=== PATIENT | female | born 1940 | race Caucasian/White ===

== ENCOUNTER 2018-10-24 21:47 | Emergency (ER) | payer OTHER, BC ==
[2018-10-24] MEDS ORDERED: NA CHLORIDE 0.9% 500 ML ONE (22:11)
[2018-10-25] MEDS ORDERED: levoFLOXacin 500 MG TAB ONE (00:32)
--- NOTE | 2018-10-25 00:46 | ER ---
Nurse's Notes [facility] Name: Diane White Age: 77 yrs Sex: Female : 1940 Arrival Date: 10/24/2018 Time: 21:47 Bed 8 Private MD: Diagnosis: Acute sinusitis Presentation: 10/24 21:49 Presenting complaint: Patient states: she has been having ear pain,sore throat, and dry aa1 cough x 4 days and began running fever today. Transition of care: patient was not received from another setting of care. Onset of symptoms was October 21, 2018. Risk Assessment: Do you want to hurt yourself or someone else? Patient reports no desire to harm self or others. Initial Sepsis Screen: Does the patient meet any 2 criteria? No. Patient's initial sepsis screen is negative. Does the patient have a suspected source of infection? No. Patient's initial sepsis screen is negative. Care prior to arrival: None. 21:49 Method Of Arrival: EMS: [facility] aa1 21:49 Acuity: CRISS 3 aa1 Triage Assessment: 21:49 General: Appears in no apparent distress. comfortable, Behavior is calm, cooperative, aa1 appropriate for age. Historical: - Allergies: 22:05 Biaxin; aa1 22:05 PENICILLINS; aa1 22:05 tramadol; aa1 22:05 Medrol; aa1 - Home Meds: 22:05 nisoldipine 8.5 mg oral Tb24 2 tabs in am \T\ 1 tab in pm [Active]; levothyroxine 50 mcg aa1 tab 1 tab once daily [Active]; Prevacid 15 mg Oral cpDR 2 caps once daily [Active]; doxazosin 1 mg oral tab 1 tab once daily [Active]; rosuvastatin 10 mg oral tab 1 tab once daily [Active]; Centrum Silver Women 8 mg iron-400 mcg-300 mcg oral tab daily [Active]; alprazolam 0.25 mg Oral tab 1 tab daily [Active]; - PMHx: 22:05 Anxiety; Hypothyroidism; Gastric Reflux; Hypertension; aa1 - PSHx: 22:05 Tubal ligation; Cataracts bilat; aa1 - Immunization history:: Pneumococcal vaccine is up to date, Flu vaccine is up to date. - Social history:: Smoking status: Patient/guardian denies using tobacco, never smoked. - Family history:: not pertinent. - Ebola Screening: : Patient denies exposure to infectious person Patient denies travel to an Ebola-affected area in the 21 days before illness onset. - Hospitalizations: : No recent hospitalization is reported. Screenin:50 Abuse screen: Denies threats or abuse. Denies injuries from another. Nutritional aa1 screening: No deficits noted. Tuberculosis screening: No symptoms or risk factors identified. Fall Risk None identified. Assessment: 22:27 General: Appears in no apparent distress. comfortable, Behavior is calm, cooperative, rr5 appropriate for age. Pain: Complains of pain in throat and left ear Pain currently is 5 out of 10 on a pain scale. Quality of pain is described as aching, Pain began gradually, Is intermittent. Neuro: Level of Consciousness is awake, alert, obeys commands, Oriented to person, place, time. Cardiovascular: Capillary refill < 3 seconds Patient's skin is warm and dry. Respiratory: Airway is patent Respiratory effort is even, unlabored, Respiratory pattern is regular, symmetrical. GI: No signs and/or symptoms were reported involving the gastrointestinal system. : No signs and/or symptoms were reported regarding the genitourinary system. EENT: Throat is clear with gag reflex present. Derm: No signs and/or symptoms reported regarding the dermatologic system. Musculoskeletal: Capillary refill < 3 seconds, Range of motion: intact in all extremities. 23:31 Reassessment: Patient appears in no apparent distress at this time. no complaints made. rr5 went to restroom voided freely. Patient states feeling better. Patient states symptoms have improved. 10/25 00:15 Reassessment: Patient appears in no apparent distress at this time. Patient states rr5 feeling better. Patient states symptoms have improved. 00:56 Reassessment: discharge instruction and prescription explained without questions ask. rr5 Vital Signs: 10/24 21:49 BP 158 / 68; Pulse 94; Resp 20; Temp 99.2(O); Pulse Ox 98% on R/A; Weight 58.97 kg; aa1 Height 5 ft. 2 in. (157.48 cm); Pain 0/10; 22:30 BP 141 / 75; Pulse 92; Resp 18; Pulse Ox 98% ; rr5 23:44 BP 146 / 85; Pulse 90; Resp 18; Pulse Ox 99% on R/A; rr5 12 00:45 BP 133 / 76; Pulse 89; Resp 17; Temp 99; Pulse Ox 98% ; rr5 12 21:49 Body Mass Index 23.78 (58.97 kg, 157.48 cm) aa1 ED Course: 12 21:47 Patient arrived in ED. al2 21:49 Allan Hinds MD is Attending Physician. rn 21:49 Arm band placed on left wrist. Patient placed in an exam room, on a stretcher. aa1 21:50 Patient has correct armband on for positive identification. Placed in gown. Bed in low aa1 position. Call light in reach. Side rails up X2. Pulse ox on. NIBP on. 21:59 Triage completed. aa1 22:00 Juan Mccall RN is Primary Nurse. rr5 22:05 Inserted saline lock: 20 gauge in right forearm, using aseptic technique. rr5 22:53 X-ray completed. Portable x-ray completed in exam room. Patient tolerated procedure la2 well. 23:56 XRAY Chest (1 view) In Process Unspecified. EDMS 12 00:55 No provider procedures requiring assistance completed. IV discontinued, intact, rr5 bleeding controlled, No redness/swelling at site. Pressure dressing applied. Administered Medications: 10/24 22:05 Drug: NS 0.9% 500 ml Route: IV; Rate: bolus; Site: right forearm; rr5 23:55 Follow up: IV Status: Completed infusion; IV Intake: 500ml rr5 12 00:14 Follow up: Response: No adverse reaction rr5 00:33 Drug: LevaQUIN 500 mg Route: PO; rr5 00:50 Follow up: Response: Medication administered at discharge. rr5 Intake: 12 23:55 IV: 500ml; Total: 500ml. rr5 Outcome: 12 00:45 Discharge ordered by . rn 00:55 Discharged to home ambulatory. rr5 00:55 Condition: stable 00:55 Discharge instructions given to patient, family, Instructed on discharge instructions, follow up and referral plans. medication usage, Demonstrated understanding of instructions, follow-up care, medications, Prescriptions given X 1. 00:59 Patient left the ED. rr5 Signatures: Dispatcher [employer] EDMS Chelsea Parra RN RN aa1 Allan Hinds MD MD rn Ardoin, Leslie la2 Cailin Malik Raymond, GAEL RN rr5
--- NOTE | 2018-10-25 00:47 | EDPHYS ---
Physician Documentation [facility] Name: Diane White Age: 77 yrs Sex: Female : 1940 Arrival Date: 10/24/2018 Time: 21:47 Bed 8 Private MD: ED Physician Allan Hinds HPI: 10/24 21:57 This 77 yrs old Female presents to ER via Unassigned with complaints of rn cough, congestion. 21:57 The patient or guardian reports cough, that is intermittent, described as mild. Onset: rn The symptoms/episode began/occurred 3 day(s) ago. Severity of symptoms: At their worst the symptoms were mild, in the emergency department the symptoms are unchanged. Modifying factors: The symptoms are alleviated by nothing, the symptoms are aggravated by nothing. The patient has experienced similar episodes in the past. Reports cough, fever, congestion, earache, sore throat, for 3-4 days, got weaker today, called 911 because concerned might fall and he cant get her up. Denies chest pain/sob/abd pain/vomiting/diarrhea. . Historical: - Allergies: 22:05 Biaxin; aa1 22:05 PENICILLINS; aa1 22:05 tramadol; aa1 22:05 Medrol; aa1 - Home Meds: 22:05 nisoldipine 8.5 mg oral Tb24 2 tabs in am \T\ 1 tab in pm [Active]; levothyroxine 50 mcg aa1 tab 1 tab once daily [Active]; Prevacid 15 mg Oral cpDR 2 caps once daily [Active]; doxazosin 1 mg oral tab 1 tab once daily [Active]; rosuvastatin 10 mg oral tab 1 tab once daily [Active]; Centrum Silver Women 8 mg iron-400 mcg-300 mcg oral tab daily [Active]; alprazolam 0.25 mg Oral tab 1 tab daily [Active]; - PMHx: 22:05 Anxiety; Hypothyroidism; Gastric Reflux; Hypertension; aa1 - PSHx: 22:05 Tubal ligation; Cataracts bilat; aa1 - Immunization history:: Pneumococcal vaccine is up to date, Flu vaccine is up to date. - Social history:: Smoking status: Patient/guardian denies using tobacco, never smoked. - Family history:: not pertinent. - Ebola Screening: : Patient denies exposure to infectious person Patient denies travel to an Ebola-affected area in the 21 days before illness onset. - Hospitalizations: : No recent hospitalization is reported. ROS: 21:57 Constitutional: + fever and chills Eyes: Negative for injury, pain, redness, and high school learning support teacher, ENT: + earache, + nasal congestion, + sore throat Neck: Negative for injury, pain, and swelling, Cardiovascular: Negative for chest pain, palpitations, and edema, Respiratory: + cough, neg for sob Abdomen/GI: Negative for abdominal pain, vomiting, diarrhea, and constipation, MS/Extremity: Negative for injury and deformity, Skin: Negative for injury, rash, and discoloration, Neuro: + generalized weakness Exam: 21:57 Constitutional: This is a well developed, well nourished patient who is awake, alert, rn and in no acute distress. Head/Face: Normocephalic, atraumatic. Eyes: Pupils equal round and reactive to light, extra-ocular motions intact. Lids and lashes normal. Conjunctiva and sclera are non-icteric and not injected. Cornea within normal limits. Periorbital areas with no swelling, redness, or edema. ENT: Mild pharyngeal erythema with postnasal drip, no stridor, no exudate Neck: + non-tender cervical LAD Cardiovascular: Regular rate and rhythm with a normal S1 and S2. No gallops, murmurs, or rubs. No JVD. No pulse deficits. Respiratory: Lungs have equal breath sounds bilaterally, clear to auscultation, No increased work of breathing, no retractions or nasal flaring. Abdomen/GI: soft, non-tender MS/ Extremity: Pulses equal, no cyanosis. Neurovascular intact. Full, normal range of motion. Equal circumference. Neuro: Awake and alert, GCS 15, oriented to person, place, time, and situation. Cranial nerves II-XII grossly intact. Motor strength 5/5 in all extremities. Sensory grossly intact Vital Signs: 21:49 BP 158 / 68; Pulse 94; Resp 20; Temp 99.2(O); Pulse Ox 98% on R/A; Weight 58.97 kg; aa1 Height 5 ft. 2 in. (157.48 cm); Pain 0/10; 22:30 BP 141 / 75; Pulse 92; Resp 18; Pulse Ox 98% ; rr5 23:44 BP 146 / 85; Pulse 90; Resp 18; Pulse Ox 99% on R/A; rr5 10/25 00:45 BP 133 / 76; Pulse 89; Resp 17; Temp 99; Pulse Ox 98% ; rr5 10/24 21:49 Body Mass Index 23.78 (58.97 kg, 157.48 cm) aa1 MDM: 10/24 21:49 Patient medically screened. rn 10/25 00:44 Differential Diagnosis: Bronchitis Influenza Upper Respiratory Infection Sinusitis rn Pharyngitis Viral Syndrome Pneumonia. Data reviewed: vital signs, nurses notes, lab test result(s), radiologic studies, and as a result, I will discharge patient. Counseling: I had a detailed discussion with the patient and/or guardian regarding: the historical points, exam findings, and any diagnostic results supporting the discharge/admit diagnosis, lab results, radiology results, the need for outpatient follow up, to return to the emergency department if symptoms worsen or persist or if there are any questions or concerns that arise at home. Response to treatment: the patient's symptoms have markedly improved after treatment, and as a result, I will discharge patient. Special discussion: I discussed with the patient/guardian in detail that at this point there is no indication for admission to the hospital. It is understood, however, that if the symptoms persist or worsen the patient needs to return immediately for re-evaluation. ED course: Feels better, ambulatory to bathroom.. 10/24 21:56 Order name: Flu; Complete Time: 00:17 rn 10/24 21:56 Order name: Strep rn 10/24 21:56 Order name: XRAY Chest (1 view) 10/24 23:35 Order name: Group A Streptococcus Rapid Sc; Complete Time: 23:37 EDMT 10/25 00:14 Order name: Throat Culture EDMT 10/24 21:56 Order name: IV Start; Complete Time: 22:25 rn Administered Medications: 10/24 22:05 Drug: NS 0.9% 500 ml Route: IV; Rate: bolus; Site: right forearm; rr5 23:55 Follow up: IV Status: Completed infusion; IV Intake: 500ml rr5 10/25 00:14 Follow up: Response: No adverse reaction rr5 00:33 Drug: LevaQUIN 500 mg Route: PO; rr5 00:50 Follow up: Response: Medication administered at discharge. rr5 Disposition: 10/25/18 00:45 Discharged to Home. Impression: Acute sinusitis. - Condition is Stable. - Discharge Instructions: Sinusitis, Adult. - Prescriptions for Levaquin 500 mg Oral Tablet - take 1 tablet by ORAL route once daily for 7 days; 7 tablet. - Medication Reconciliation Form, Thank You Letter, Antibiotic Education, Prescription Opioid Use form. - Follow up: Private Physician; When: As needed; Reason: Recheck today's complaints, Re-evaluation by your physician. - Problem is new. - Symptoms have improved. Signatures: Dispatcher [employer] EDMS Chelsea Parra RN RN aa1 Allan Hinds MD MD rn Roque, Raymond, RN RN rr5 Corrections: (The following items were deleted from the chart) 00:59 00:45 10/25/2018 00:45 Discharged to Home. Impression: Acute sinusitis. Condition is rr5 Stable. Forms are Medication Reconciliation Form, Thank You Letter, Antibiotic Education, Prescription Opioid Use. Follow up: Private Physician; When: As needed; Reason: Recheck today's complaints, Re-evaluation by your physician. Problem is new. Symptoms have improved. rn
[2018-10-25 01:58] VITALS: O2SAT 98
[2018-10-25 02:12] VITALS: BP 133/76; TEMP 99
--- NOTE | 2018-10-25 08:57 | RAD REPORT ---
EXAM DESCRIPTION: RAD - Chest Single View - 10/24/2018 10:57 pm CLINICAL HISTORY: Dry cough, sore throat COMPARISON: March 2017 TECHNIQUE: AP portable chest image was obtained 0853 hours . FINDINGS: Lung volumes are low compared to prior imaging. Small granuloma seen. Lung markings are no t substantially different. Heart and vasculature are normal. No measurable pleural effusion and no pn eumothorax. No acute bony abnormality seen. No acute aortic findings suspected. IMPRESSION: No acute cardiopulmonary process. No significant change from comparison.
== END 2018-10-25 00:59 | disposition home or self-care (01) ==
LOC: ER 21:47
DX: J01.90 Acute sinusitis, unspecified (principal); R05 Cough; E03.9 Hypothyroidism, unspecified; I10 Essential (primary) hypertension; K21.9 Gastro-esophageal reflux disease without esophagitis; F41.9 Anxiety disorder, unspecified; Z79.899 Other long term (current) drug therapy
CPT/HCPCS: 71045; 87070; 87081; 87804; 96360; 96361; 99284

== ENCOUNTER 2024-04-21 08:19 | Emergency (ER) | payer OTHER, BC ==
--- OUTSIDE RECORDS SUMMARY | 2024-04-21 08:22 | XMS REPORT | Continuity of Care Document ---
Author Name Unknown Address [address] [place] [id number] [facility] thconnect Address [address] [place] [address] Care Team Providers Care Office Machine Service Supervisor Name Role Phone Jose Francisco Valadez Attending Clinician Unavailable Jose Francisco Valadez Admitting Clinician Unavailable Payers Payer Name Policy Type Policy Number Effective Date Expirati on Date Source Encounters Start Date/Time End Date/Time Encounter Type Admission Type Attending Clinicians Care Facility Care Department Encounter ID Source 2022-01-08 12:00:00 2022-01-08 12:00:00 Outpatient Jose Francisco Alfonso [facility] [id number] [address] [facility]
[2024-04-21] MEDS ORDERED: LIDOCAINE 1% MPF 5 ML VIAL ONE (08:39)
--- NOTE | 2024-04-21 09:18 | RAD REPORT ---
EXAM DESCRIPTION: RAD - Knee Right 3 View - 04/21/2024 9:09 am CLINICAL HISTORY: PAIN COMPARISON: No comparisons FINDINGS: Mild osteopenia is present. No acute fracture or dislocation seen. No joint effusion.
--- NOTE | 2024-04-21 11:02 | EDPHYS ---
Physician Documentation [facility] Name: Diane White Age: 83 yrs Sex: Female : 1940 Arrival Date: 04/21/2024 Time: 08:19 Bed 4 Private MD: ED Physician Allan Hinds HPI: 04/21 09:08 This 83 yrs old Female presents to ER via Ambulatory with complaints of Fall Injury, rn Laceration To Chin. 09:08 Details of fall: The patient fell from an upright position, while standing. rn 09:08 Onset: The symptoms/episode began/occurred this morning. Associated injuries: The rn patient sustained Chin. Severity of symptoms: At their worst the symptoms were mild, in the emergency department the symptoms are unchanged. The patient has not experienced similar symptoms in the past. Patient reports walking today, tripped, fell onto knee and hit chin on the ground. Has small laceration to the chin, could not get it to stop so came in to see if she needed stitches.. Historical: - Allergies: 08:32 Medrol; iw 08:32 Biaxin; iw 08:32 PENICILLINS; iw 08:32 tramadol; iw - PMHx: 08:32 Anxiety; Gastric Reflux; Hypertension; Hypothyroidism; iw - Immunization history:: Last tetanus immunization: unknown. - Infectious Disease History:: Denies. - Social history:: Smoking status: Patient denies any tobacco usage or history of. - Family history:: not pertinent. - Hospitalizations: : No recent hospitalization is reported. ROS: 09:08 Constitutional: Negative for fever, chills, and weight loss, Cardiovascular: Negative rn for chest pain, palpitations, and edema, Respiratory: Negative for shortness of breath, cough, wheezing, and pleuritic chest pain, Abdomen/GI: Negative for abdominal pain, nausea, vomiting, diarrhea, and constipation, MS/Extremity: Positive for right knee injury and pain Skin: Positive for laceration to the chin Exam: 09:10 Constitutional: This is a well developed, well nourished patient who is awake, alert, rn and in no acute distress. Head/Face: Normocephalic, 3 cm superficial laceration to the chin, no bony tenderness underlying laceration. No significant swelling. ENT: No intraoral injury noted Neck: No midline cervical tenderness Cardiovascular: Regular rate and rhythm. No pulse deficits. Respiratory: No increased work of breathing, no retractions or nasal flaring. Abdomen/GI: Soft, non-tender MS/ Extremity: Pulses equal, no cyanosis. Mild swelling noted to right knee. No laceration to the knee. Neuro: Awake and alert, GCS 15 Vital Signs: 08:32 BP 152 / 66; Pulse 59; Resp 16; Temp 97.6; Pulse Ox 99% on R/A; Weight 60.78 kg; Height iw 5 ft. 4 in. ; 09:32 BP 149 / 64; ld1 08:32 Body Mass Index 23.00 (60.78 kg, 162.56 cm) iw Laceration: 10:59 Wound Repair of 3cm ( 1.2in ) subcutaneous laceration to chin. Distal rn neuro/vascular/tendon intact. Anesthesia: Wound infiltrated with 3 mls of 1% lidocaine. Wound prep: Extensive cleansing by nurse by me, Wound irrigation by nurse, Wound explored. Skin closed with 4 5-0 fast absorbing gut using interrupted sutures and sterile technique. Dressed with steri-strips. Patient tolerated well. MDM: 08:30 Patient medically screened. rn 10:59 Differential diagnosis: contusion, fracture, laceration, sprain, strain. Data reviewed: rn vital signs, nurses notes, radiologic studies, plain films, and as a result, I will discharge patient. Counseling: I had a detailed discussion with the patient and/or guardian regarding the historical points, exam findings, and any diagnostic results supporting the discharge/admit diagnosis, radiology results, the need for outpatient follow up, to return to the emergency department if symptoms worsen or persist or if there are any questions or concerns that arise at home. Special discussion: I discussed with the patient/guardian in detail that at this point there is no indication for admission to the hospital. It is understood, however, that if the symptoms persist or worsen the patient needs to return immediately for re-evaluation. 04/21 08:38 Order name: XRAY Knee RIGHT 3 view; Complete Time: 10:33 rn 04/21 08:38 Order name: Wound Care; Complete Time: 08:45 rn 04/21 08:38 Order name: Suture Tray at Bedside; Complete Time: 08:45 rn Administered Medications: 10:21 Drug: Lidocaine Infiltration (1 %) 1 vials 5 ml Infiltration once; to bedside Volume: 5 mb9 ml; Route: Infiltration; 11:00 Drug: Tetanus Toxoid,Adsorbed IM 0.5 ml IM once; Provide Vaccine Information Statement mb9 (VIS). {Manager Rail: [employer]; Exp: FriMay 26 2026; Lot #: [id number]; Series: 1 of 1; Patient Consent: Obtained; Date/Time: ; Source Name: Diane White; Source Relationship: Self; Address Information: [address] [place] [address]; ; Education: Provided; VIS Presented Date: ; VIS Publication: Tetanus/Diphtheria (Td) Vaccine VIS 03/04/2017 (historic)} Route: IM; Site: left deltoid; Disposition Summary: 04/21/24 11:01 Discharge Ordered Notes: Location: Home rn Problem: new rn Symptoms: have improved rn Condition: Stable rn Diagnosis - Laceration without foreign body of unspecified part of head rn - Contusion of right knee rn Followup: rn - With: Private Physician - When: As needed - Reason: Recheck today's complaints, Re-evaluation by your physician Discharge Instructions: - Discharge Summary Sheet rn - Contusion rn - Facial Laceration rn Forms: - Medication Reconciliation Form rn - Antibiotic rn neonatal - Prescription Opioid Use rn - Patient Portal Instructions rn - Leadership Thank You Letter rn Signatures: Dispatcher [employer] Lupe Heath RN Allan Amaro MD MD rn Breneman, Mary Beth RN GAEL mb9 Corrections: (The following items were deleted from the chart) 09:10 09:08 Constitutional: Negative for fever, chills, and weight loss, Cardiovascular: rn Negative for chest pain, palpitations, and edema, Respiratory: Negative for shortness of breath, cough, wheezing, and pleuritic chest pain, Abdomen/GI: Negative for abdominal pain, nausea, vomiting, diarrhea, and constipation, MS/Extremity: Negative for injury and deformity, Skin: Positive for laceration to the chin rn
--- NOTE | 2024-04-21 11:02 | ER ---
Nurse's Notes [facility] Name: Diane White Age: 83 yrs Sex: Female : 1940 Arrival Date: 04/21/2024 Time: 08:19 Bed 4 Private MD: Diagnosis: Laceration without foreign body of unspecified part of head;Contusion of right knee Presentation: 04/21 08:30 Chief complaint: Patient states: was walking up the driveway and i tripped, hit my chin iw and my right knee, happened this morning at 0630/700, chin won't stop bleeding , denies LOC, not on blood thinners. 08:30 Acuity: CRISS 3 iw 08:32 Coronavirus screen: At this time, the client does not indicate any symptoms associated iw with coronavirus-19. Ebola Screen: No symptoms or risks identified at this time. Initial Sepsis Screen: Does the patient meet any 2 criteria? No. Patient's initial sepsis screen is negative. Does the patient have a suspected source of infection? No. Patient's initial sepsis screen is negative. Risk Assessment: Do you want to hurt yourself or someone else? Patient reports no desire to harm self or others. Onset of symptoms was April 21, 2024. 08:32 Method Of Arrival: Ambulatory iw Historical: - Allergies: 08:32 Medrol; iw 08:32 Biaxin; iw 08:32 PENICILLINS; iw 08:32 tramadol; iw - PMHx: 08:32 Anxiety; Gastric Reflux; Hypertension; Hypothyroidism; iw Historical Immunization: - Administered Vaccines 11:00 Tetanus Toxoid,Adsorbed IM 0.5 ml mb9 Vulcan Crewmember: Change Lane; Exp: FriMay 26 2026; Lot #: [id number]; Series: 1 of 1; Patient Consent: Obtained; Date/Time: ; Source Name: Diane White; Source Relationship: Self; Address Information: [address] [place] [id number]; ; Education: Provided; VIS Presented Date: ; VIS Publication: Tetanus/Diphtheria (Td) Vaccine VIS 03/04/2017 (historic) 10:21 Lidocaine Infiltration (1 %) 1 vials mb9 - Immunization history:: Last tetanus immunization: unknown. - Infectious Disease History:: Denies. - Social history:: Smoking status: Patient denies any tobacco usage or history of. - Family history:: not pertinent. - Hospitalizations: : No recent hospitalization is reported. Screenin:47 [facility] ED Fall Risk Assessment (Adult) History of falling in the last 3 months, mb9 including since admission Yes- single mechanical fall (1 pt) Confusion or Disorientation No (0 pts) Intoxicated or Sedated No (0 pts) Impaired Gait No (0 pts) Mobility Assist Device Used No (0 pt) Altered Elimination No (0 pt) Score/Fall Risk Level 3 or more points = High Risk Oriented to surroundings, Maintained a safe environment, Educated pt \T\ family on fall prevention, incl call for assistance when getting out of bed. Abuse screen: Denies threats or abuse. Nutritional screening: No deficits noted. Tuberculosis screening: No symptoms or risk factors identified. Assessment: 08:45 General: Appears in no apparent distress. Behavior is calm, cooperative. Pain: mb9 Complains of pain in chin and right patella Pain does not radiate. Pain currently is 8 out of 10 on a pain scale. Quality of pain is described as throbbing, Pain began suddenly, Is continuous, Aggravated by increased activity, repositioning. Neuro: Macias Agitation-Sedation Scale (RASS): 0 - Alert and Calm Level of Consciousness is awake, alert, obeys commands, Oriented to person, place, time, situation, Appropriate for age. Neuro: Pupils are PERRLA. Cardiovascular: Patient's skin is warm and dry. Respiratory: Airway is patent Respiratory effort is even, unlabored, Respiratory pattern is regular, symmetrical. GI: No signs and/or symptoms were reported involving the gastrointestinal system. : No signs and/or symptoms were reported regarding the genitourinary system. EENT: No signs and/or symptoms were reported regarding the EENT system. Derm: Bruising that is dark purple, on right patella. Musculoskeletal: Range of motion: intact in all extremities. 10:40 Reassessment: Pyxis out of [employer]. Pharmacy contacted. mb9 Vital Signs: 08:32 BP 152 / 66; Pulse 59; Resp 16; Temp 97.6; Pulse Ox 99% on R/A; Weight 60.78 kg; Height iw 5 ft. 4 in. ; 09:32 BP 149 / 64; ld1 08:32 Body Mass Index 23.00 (60.78 kg, 162.56 cm) iw ED Course: 08:24 Patient arrived in ED. mg5 08:30 Allan Hinds MD is Attending Physician. rn 08:31 Triage completed. iw 08:33 Arm band placed on. iw 08:35 Shruthi Whitley, GAEL is Primary Nurse. mb9 08:47 Placed in gown. Bed in low position. Call light in reach. Side rails up X 1. Provided mb9 Education on: press call light if needing anything. Client placed on continuous cardiac and pulse oximetry monitoring. NIBP monitoring applied. Door closed. Noise minimized. Warm blanket given. Pillow given. 09:11 XRAY Knee RIGHT 3 view In Process Unspecified. EDMS 10:24 Assist provider with laceration repair on chin that was between 2.6 to 7.5 cm using mb9 sutures. Set up tray. Performed by Allan Hinds MD Dressed with band aid, Patient tolerated well. 10:25 Patient did not have IV access during this emergency room visit. mb9 Administered Medications: 10:21 Drug: Lidocaine Infiltration (1 %) 1 vials 5 ml Infiltration once; to bedside Volume: 5 mb9 ml; Route: Infiltration; 11:00 Drug: Tetanus Toxoid,Adsorbed IM 0.5 ml IM once; Provide Vaccine Information Statement mb9 (VIS). {Vulcan Crewmember: Change Lane; Exp: FriMay 26 2026; Lot #: [id number]; Series: 1 of 1; Patient Consent: Obtained; Date/Time: ; Source Name: Diane White; Source Relationship: Self; Address Information: [address] [place] [address]; ; Education: Provided; VIS Presented Date: ; VIS Publication: Tetanus/Diphtheria (Td) Vaccine VIS 03/04/2017 (historic)} Route: IM; Site: left deltoid; Medication: 08:48 VIS not applicable for this client. mb9 Outcome: 11:01 Discharge ordered by . rn 11:10 Discharged to home ambulatory, maria e 11:10 Condition: stable 11:10 Discharge instructions given to patient, Instructed on discharge instructions, follow up and referral plans. Demonstrated understanding of instructions, follow-up care, 11:10 Patient left the ED. mb9 Signatures: Dispatcher [employer] Lupe Heath, Allan Amaro RN, MD MD rn Sims, Lauren, RN RN ld1 Gutierrez, Shruthi Martins RN RN [email or web address] Smitha Cannon mg5 Corrections: (The following items were deleted from the chart) 08:32 08:30 Chief complaint: Patient states: was walking up the driveway and i tripped, hit iw my chin and my right knee, happened this morning at 0630/700, chin won't stop bleeding iw 10:25 08:48 No provider procedures requiring assistance completed. mb9 mb9
[2024-04-21] MEDS ORDERED: TDAP (DIPHTH,PERTUSS(ACELL),TET VAC) 0.5 ML VIAL IMVAC ONE (11:04)
[2024-04-21 11:18] VITALS: BP 149/64; TEMP 97.6; O2SAT 99
== END 2024-04-21 11:10 | disposition home or self-care (01) ==
LOC: ER 08:19
PROC: 0HQ1XZZ Repair Face Skin, External Approach (ICD-10-PCS; principal; 2024-04-21)
DX: S01.81XA Laceration without foreign body of other part of head, initial encounter (principal); S80.01XA Contusion of right knee, initial encounter; W01.0XXA Fall on same level from slipping, tripping and stumbling without subsequent striking against object, initial encounter; Z23 Encounter for immunization
CPT/HCPCS: 73562; 90471; 99284; 12013; J2001

== ENCOUNTER 2025-02-16 22:48 | Emergency (ER) | payer OTHER, BC ==
--- OUTSIDE RECORDS SUMMARY | 2025-02-16 22:50 | XMS REPORT | Continuity of Care Document ---
Author Name Unknown Address [address] [facility] [address] [facility] [address] [place] [address] [facility] Address [address] [place] [address] Care Team Providers Care Rock Crushing Machine Operator Name Role Phone Jose Francisco Valadez Attending Clinician Unavailable Jose Francisco Valadez Admitting Clinician Unavailable Payers Payer Name Policy Type Policy Number Effective Date Expirati on Date Source Encounters Start Date/Time End Date/Time Encounter Type Admission Type Attending Clinicians Care Facility Care Department Encounter ID Source 2022-01-08 12:00:00 2022-01-08 12:00:00 Outpatient Jose Francisco Alfonso [facility] JUAN [id number] [address] [facility]
[2025-02-16] MEDS ORDERED: ACETAMINOPHEN 500 MG TAB ONE (23:49)
[2025-02-17 00:02] LABS: Influenza A Ag Negative; Influenza B Ag Negative; SARS-CoV-2 Antigen Rapid Res Negative (Negative)
--- NOTE | 2025-02-17 02:08 | ER ---
Nurse's Notes [facility] Name: Diane White Age: 84 yrs Sex: Female : 1940 Arrival Date: 02/16/2025 Time: 22:48 Bed 20 Private MD: Diagnosis: Acute upper respiratory infection, unspecified Presentation: 02/16 23:25 Chief complaint: Patient states: PT HAS BEEN RUNNING FEVER/HEADACHE SINCE br2 FRIDAY....DENIES N/V/D. Coronavirus screen: Client denies travel out of the [place] in the last 14 days. Ebola Screen: Patient denies exposure to infectious person. Initial Sepsis Screen: Does the patient meet any 2 criteria? Temp <36.0*C (96.8*F)) or > 38.3*C (100.9*F). Does the patient have a suspected source of infection? No. Patient's initial sepsis screen is negative. Risk Assessment: Do you want to hurt yourself or someone else? Patient reports no desire to harm self or others. Onset of symptoms was February 13, 2025. 23:25 Method Of Arrival: EMS: [facility] br2 23:25 Acuity: CRISS 3 br2 Triage Assessment: 23:36 General: Appears in no apparent distress. comfortable, Behavior is calm, cooperative. br2 Pain: Complains of pain in top of head and forehead. EENT: No signs and/or symptoms were reported regarding the EENT system. Neuro: Macias Agitation-Sedation Scale (RASS): 0 - Alert and Calm Level of Consciousness is awake, alert, obeys commands, Oriented to person, place, time, situation. Cardiovascular: Denies chest pain. Respiratory: Denies cough, shortness of breath. GI: No signs and/or symptoms were reported involving the gastrointestinal system. : No signs and/or symptoms were reported regarding the genitourinary system. Historical: - Allergies: 23:36 Biaxin; br2 23:36 Medrol; br2 23:36 PENICILLINS; br2 23:36 tramadol; br2 - PMHx: 23:36 Hypothyroidism; Anxiety; Gastric Reflux; Hypertension; br2 - Immunization history:: Client reports receiving the 2nd dose of the Covid vaccine, Flu vaccine is up to date. - Social history:: Smoking status: Patient denies any tobacco usage or history of. - Infectious Disease History:: Denies. Screenin:25 [facility] ED Fall Risk Assessment (Adult) History of falling in the last 3 months, br2 including since admission No falls in past 3 months (0 pts) Confusion or Disorientation No (0 pts) Intoxicated or Sedated No (0 pts) Impaired Gait No (0 pts) Mobility Assist Device Used No (0 pt) Altered Elimination No (0 pt) Score/Fall Risk Level 0 - 2 = Low Risk Oriented to surroundings. Abuse screen: Denies threats or abuse. Denies injuries from another. Nutritional screening: No deficits noted. Tuberculosis screening: No symptoms or risk factors identified. Assessment: 23:25 Reassessment: SEE TRIAGE ASSESSMENT. br2 02/17 01:03 Reassessment: Patient and/or family updated on plan of care and expected duration. Pain br2 level reassessed. Patient states symptoms have improved. 02:00 Reassessment: Patient and/or family updated on plan of care and expected duration. Pain br2 level reassessed. Patient is alert, oriented x 3, equal unlabored respirations, skin warm/dry/pink. Patient states feeling better. Patient states symptoms have improved. Vital Signs: 02/16 23:25 BP 149 / 61; Pulse 91; Resp 18; Temp 102.2(O); Pulse Ox 93% on R/A; Weight 58.97 kg; br2 Height 5 ft. 2 in. ; Pain 8/10; 02/17 00:59 BP 122 / 53; Pulse 77; Resp 18; Temp 100.1(O); Pulse Ox 90% on R/A; br2 01:59 BP 116 / 49; Pulse 69; Resp 18; Pulse Ox 93% ; br2 02/16 23:25 Body Mass Index 23.78 (58.97 kg, 157.48 cm) br2 02/16 23:25 Pain Scale: Adult br2 ED Course: 02/16 22:50 Patient arrived in ED. jj6 22:55 Isabelle Pascual MD is Attending Physician. sw6 23:25 Patient has correct armband on for positive identification. Bed in low position. Call br2 light in reach. Side rails up X 1. Provided Education on: PLAN OF CARE. 23:34 Juana Cano, RN is Primary Nurse. br2 23:35 COVID-19 Ag + Flu A+B Ag Sent. vc1 23:36 Triage completed. br2 23:39 CXR XRAY In Process Unspecified. EDMS 02/17 02:16 No provider procedures requiring assistance completed. Patient did not have IV access br2 during this emergency room visit. Administered Medications: 02/16 23:58 Drug: Acetaminophen PO 1000 mg PO once Route: PO; br2 02/17 02:00 Follow up: Response: No adverse reaction br2 Outcome: 02:07 Discharge ordered by . sw6 02:16 Discharged to home ambulatory, br2 02:16 Discharged to home via wheelchair, 02:16 Condition: improved 02:16 Discharge instructions given to patient, Instructed on discharge instructions, follow up and referral plans. Demonstrated understanding of instructions, follow-up care, 02:41 Patient left the ED. br2 Signatures: Dispatcher [employer] EDNV Arlet Mahoney jj6 Jordana Apple RN RN vc1 Isabelle Pascual MD MD sw6 Juana Cano, GAEL RN br2
--- NOTE | 2025-02-17 02:08 | EDPHYS ---
Physician Documentation [facility] Name: Diane White Age: 84 yrs Sex: Female : 1940 Arrival Date: 02/16/2025 Time: 22:48 Bed 20 Private MD: ED Physician Isabelle Pascual HPI: 02/16 23:27 This 84 yrs old Female presents to ER via Unassigned with complaints of Fever.sw6 23:27 The patient reports fever, not measured (subjective). Onset: The symptoms/episode sw6 began/occurred Friday. Today is Friday. Modifying factors: there are no obvious modifying factors, Denies contact with similarly ill indivduals. Denies recent travel. Associated signs and symptoms: Pertinent positives: cough, that is dry, headache, Pertinent negatives: abdominal pain, altered mental status, hemoptysis, nausea, runny nose, sinus congestion, sinus drainage, shortness of breath, sore throat. Severity of symptoms: At their worst the symptoms were mild in the emergency department the symptoms are unchanged. The patient has not recently seen a physician. The patient presents from home and EMS for evaluation for headache as well as a fever that started on Friday. Today is Friday evening. No sick contacts. She did have some Tylenol earlier this afternoon but nothing recently. Slight cough. No ear pain. No sore throat. No neck pain or stiffness. No dysuria or hematuria. No weakness to her arms or legs. She does have a history of high blood pressure and admits to compliance with her medication. No history of diabetes. She does not smoke. She did receive both a flu as well as a COVID-vaccine this season. Here for evaluation.. Historical: - Allergies: 23:36 Biaxin; br2 23:36 Medrol; br2 23:36 PENICILLINS; br2 23:36 tramadol; br2 - PMHx: 23:36 Hypothyroidism; Anxiety; Gastric Reflux; Hypertension; br2 - Immunization history:: Client reports receiving the 2nd dose of the Covid vaccine, Flu vaccine is up to date. - Social history:: Smoking status: Patient denies any tobacco usage or history of. - Infectious Disease History:: Denies. ROS: 23:27 Constitutional: Positive for chills, fever, sw6 23:27 Respiratory: Positive for cough, Negative for shortness of breath, 23:27 Neuro: Positive for headache, 23: All other systems are negative, 02/17 02:08 Constitutional: Negative for fever, chills, and weight loss, Exam: 02/16 23:27 Constitutional: This is a well developed, well nourished patient who is awake, alert, sw6 and in no acute distress. Chest/axilla: Normal chest wall appearance and motion. Nontender with no deformity. No lesions are appreciated. Head/Face: Normocephalic, atraumatic. Neck: Trachea midline, no thyromegaly or masses palpated, and no cervical lymphadenopathy. Supple, full range of motion without nuchal rigidity, or vertebral point tenderness. No Meningismus. Respiratory: Lungs have equal breath sounds bilaterally, clear to auscultation and percussion. No rales, rhonchi or wheezes noted. No increased work of breathing, no retractions or nasal flaring. Abdomen/GI: Soft, non-tender, with normal bowel sounds. No distension or tympany. No guarding or rebound. No evidence of tenderness throughout. Back: No spinal tenderness. No costovertebral tenderness. Full range of motion. Neuro: Awake and alert, GCS 15, oriented to person, place, time, and situation. Cranial nerves II-XII grossly intact. Motor strength 5/5 in all extremities. Sensory grossly intact. Cerebellar exam normal. Normal gait. Cardiovascular: Heart sounds: murmur, systolic, Vital Signs: 23:25 BP 149 / 61; Pulse 91; Resp 18; Temp 102.2(O); Pulse Ox 93% on R/A; Weight 58.97 kg; br2 Height 5 ft. 2 in. ; Pain 8/10; 02/17 00:59 BP 122 / 53; Pulse 77; Resp 18; Temp 100.1(O); Pulse Ox 90% on R/A; br2 01:59 BP 116 / 49; Pulse 69; Resp 18; Pulse Ox 93% ; br2 02/16 23:25 Body Mass Index 23.78 (58.97 kg, 157.48 cm) br2 02/16 23:25 Pain Scale: Adult br2 MDM: 02/16 22:55 Medical Screening Exam initiated 23:27 Differential diagnosis: viral Infection, bacterial infection, URI, bronchitis, sw6 pneumonia. Data reviewed: vital signs, nurses notes, EMS record. 02/17 02:05 Data reviewed: lab test result(s), radiologic studies, plain films. ED course: The sw6 patient is doing well here in the ER. Her fever did break after administration of oral Tylenol here in the ER. Her viral swab is negative for COVID and influenza. Her chest x-ray is suggestive of a viral process and shows no pneumonia. Recommend supportive care at home for suspected viral URI. She remained stable here in the ER and is okay for discharge home with PCP follow-up.. 02/16 23:18 Order name: COVID-19 Ag + Flu A+B Ag; Complete Time: 00:38 sw6 02/17 00:38 Interpretation: Within normal limits. sw6 02/16 23:18 Order name: CXR XRAY 6 Administered Medications: 02/16 23:58 Drug: Acetaminophen PO 1000 mg PO once Route: PO; br2 02/17 02:00 Follow up: Response: No adverse reaction br2 Disposition Summary: 02/17/25 02:07 Discharge Ordered Notes: Location: Home [facility] Problem: new sw6 Symptoms: have improved sw6 Condition: Stable sw6 Diagnosis - Acute upper respiratory infection, unspecified sw6 Discharge Instructions: - Discharge Summary Sheet sw6 - Upper Respiratory Infection, Adult sw6 - Upper Respiratory Infection, Adult, [id number] sw6 Forms: - Medication Reconciliation Form sw6 - Antibiotic Education sw6 - Prescription Opioid Use sw6 - Patient Portal Instructions sw6 - Leadership Thank You Letter 6 Signatures: Dispatcher [employer] Isabelle Heath MD MD 6 Juana Cano RN RN br2
[2025-02-17 02:47] VITALS: TEMP 100.1
[2025-02-17 02:48] VITALS: BP 116/49; O2SAT 93
--- NOTE | 2025-02-17 06:05 | RAD REPORT ---
EXAM DESCRIPTION: XR CHEST 1 VIEW CLINICAL HISTORY: 84 years Female Cough. COMPARISON: None. TECHNIQUE: 1 view study of the Chest was performed. FINDINGS: Cardiac silhouette is enlarged. Central vessels are mildly increased. Small bilateral pleural effusions. Streaky perihilar and infrahilar interstitial and airspace opaciti es bilaterally Left greater than right. No pneumothorax. IMPRESSION: Enlarged heart with mild central congestion. Bilateral perihilar and infrahilar infiltrate and atelec tatic change versus pulmonary congestion. Electronically signed by: Irma Gamino MD 02/16/2025 11:56 PM CDT RP Due to temporary technical issues with the [employer] reporting system, reports are being miguel d by the in-house radiologist without review as a courtesy to ensure prompt reporting the interpreting radiologist is fully responsible for the content of the report. Transcribed Date/Time: 02/17/2025 6:04 AM
== END 2025-02-17 02:41 | disposition home or self-care (01) ==
LOC: ER 22:48
DX: J06.9 Acute upper respiratory infection, unspecified (principal); Z11.52 Encounter for screening for COVID-19
CPT/HCPCS: 36415; 71045; 87428; 99284

== ENCOUNTER 2025-02-17 12:43 | Inpatient (IN) | payer OTHER, BC ==
--- OUTSIDE RECORDS SUMMARY | 2025-02-17 13:17 | XMS REPORT | Continuity of Care Document ---
Author Name Unknown Address [address] [facility] [address] [facility] [address] [place] [address] [facility] Address [address] [facility] [facility] [address] [place] [address] Care Team Providers Care Professor Of Floriculture Name Role Phone Jose Francisco Valadez Attending Clinician Unavailable Jose Francisco Valadez Admitting Clinician Unavailable Payers Payer Name Policy Type Policy Number Effective Date Expirati on Date Source Encounters Start Date/Time End Date/Time Encounter Type Admission Type Attending Clinicians Care Facility Care Department Encounter ID Source 2022-01-08 12:00:00 2022-01-08 12:00:00 Outpatient Jose Francisco Alfonso [facility] JUAN [id number] [address] [facility]
[2025-02-17 15:29] VITALS: BMI 23.2
--- NOTE | 2025-02-17 16:01 | RAD REPORT ---
Procedure: Chest Single View HISTORY: Fever COMPARISON: February 16, 2025 FINDINGS: Mild patchy left lung opacities The right lung appears clear. There may be a small left pleural effusion. The heart is mildly enlarged. . IMPRESSION: Mild left pulmonary opacities probably pneumonia
[2025-02-17 16:16] LABS: Absolute Eosinophils 0.1 K/uL (0-0.5); Absolute Lymphocytes (CBC) 0.8 K/uL (0.7-4.9); Absolute Monocytes 0.4 K/uL (0.1-1.3); Absolute Neutrophil 5.2 K/uL (1.8-8.0); Basophils % 0.5 % (0-1.3); Eosinophils % 1.4 % (0-4.4); Hematocrit 36.2 % (36.0-45.0); Hemoglobin 12.7 g/dL (12.0-15.0); Lymphocytes % 11.9 % (15.3-44.8); MCH 31.6 pg (27.0-35.0); MCHC 35.1 g/dL (32.0-36.0); MCV 89.9 fL (80-100); Monocytes % 5.8 % (3.3-12.3); Neutrophils % 80.4 % (41.7-73.7); Nucleated Red Blood Cells % 0.1 % (0-0); Platelets 178 thou/uL (152-406); RBC Red Blood Cell Count 4.03 M/uL (3.86-4.86); Red Cell Distribution Width 13.7 % (12.1-15.2)
[2025-02-17] MEDS: CEFTRIAXONE 1,000 MG in NA CHLORIDE 0.9% 50 ML IVPB SCH (16:26)
[2025-02-17] MEDS: NA CHLORIDE 0.9% 1,000 ML IV SCH (16:26)
[2025-02-17 16:27] LABS: Albumin 3.5 g/dL (3.4-5.0); Albumin/Globulin Ratio 0.6 (1.1-1.8); Anion Gap 12.4 mEq/L (5.0-15.0); Bilirubin Total 0.6 mg/dL (0.2-1.0); Globulin 5.7 g/dL (2.3-3.5); Magnesium 2.2 mg/dL (1.6-2.4); Phosphorus 3.7 mg/dL (2.5-4.9); Potassium 3.4 mEq/L (3.5-5.1); Protein, Total 9.2 g/dL (6.4-8.2)
[2025-02-17 16:50] LABS: Specific Gravity 1.016 (1.005-1.030); Sqamous Epithelial <5 /HPF (None Seen); Urine Bacteria <20 /HPF (<20); Urine Bilirubin NEGATIVE (Negative); Urine Blood Negative (Negative); Urine Clarity Turbid (Clear); Urine Color Yellow (Yellow); Urine Crystals Unidentified Few /HPF (None Seen); Urine Culture Reflex Order NOT NEEDED; Urine Glucose NEGATIVE (Negative); Urine Ketones NEGATIVE (Negative); Urine Micro Reflex YN NO BILL MICROSCOPIC; Urine Mucus Slight /HPF (None Seen); Urine Nitrite NEGATIVE (Negative); Urine Protein TRACE (Negative); Urine RBC <5 /HPF (None Seen); Urine Urobilinogen Normal (Normal); Urine WBC <5 /HPF (<5)
[2025-02-17] MEDS: Levofloxacin500mg IV 500 MG/100 ML BAG IV SCH (18:06)
[2025-02-17] MEDS: ACETAMINOPHEN 500 MG TAB PO PRN (19:32)
[2025-02-17] MEDS: DOXAZOSIN 2 MG TAB PO SCH (20:50)
[2025-02-17] MEDS: GABAPENTIN 100 MG CAP PO SCH (20:51)
[2025-02-17] MEDS: POTASSIUM CL SA 10 MEQ TAB PO ONE (20:51)
[2025-02-17] MEDS: ROSUVASTATIN 10 MG TAB PO SCH (20:51)
[2025-02-17] MEDS: AMLODIPINE 5 MG TAB PO SCH (20:54)
--- NOTE | 2025-02-17 23:30 | HP ---
Date of Admission: 02/17/2025 Chief Complaint: Fever and feeling weak. History Of Present Illness: This is an 84-year-old pleasant female patient, who came into office toashely coleman with her and son and reported that the patient was in emergency room last night because of above-mentioned problem. As of Friday evening, the patient started to have vague symptoms of just n ot feeling good and as of Friday, she has been having fever as high as 102 degrees Fahrenheit and e is having fever on a daily basis associated with feeling very weak, tired, no energy, poor appetite . Denies any cough, congestion, sore throat. No abdominal pain, nausea, vomiting. No constipation or diarrhea. No dysuria. No blood in urine, blood in stool. Yesterday evening, the patient's son t ook her to emergency room and the patient had COVID test, influenza A and B test, and all these tests came back negative. She had a chest x-ray done, which she was told was okay and she was released to go home. There was no blood work done. Today, when she came to see me at office with all these com plaints, I did review all the testing done in the emergency room. Her chest x-ray had shown question able increased perihilar markings. The patient was not feeling good at all. Blood pressure at [facility] was 96/58, pulse 77, temperature was 97.6. The patient did take Tylenol today before coming to off ice for fever. After I evaluated her, decision was made to admit her to hospital. Allergies: TO PENICILLIN CAUSING RASH, METHYLPREDNISOLONE CAUSING HIGH BLOOD PRESSURE, ATORVASTATIN CAUSING MUSCLE ACHES, AMLODIPINE CAUSING LEG SWELLING, DILTIAZEM CAUSING LEG SWELLING. Medications: Doxazosin 1 mg at bedtime, gabapentin 200 mg 2 times a day, levothyroxine 50 mcg daily, nisoldipine 8.5 mg 2 times a day, Prilosec OTC 20 mg daily, rosuvastatin 10 mg daily. Review of Systems: Constitutional: As mentioned above. All other systems reviewed and negative. Past Medical History: Significant for hypertension, mixed hyperlipidemia, hypothyroidism, lumbar rad iculopathy, chronic kidney disease stage IIIA, gastroesophageal reflux disease, generalized anxiety d isorder, diverticulosis, mitral regurgitation, and cervical spondylosis. Past Surgical History: Tubal ligation and shoulder surgery. Family History: Father had myocardial infarction. Mother had unknown type of cancer. Sister had my ocardial infarction and stroke. Social History: Negative for smoking and alcohol use. Physical Examination: Vital Signs: When I saw her at office today, blood pressure was 96/58, which was verified with manua l blood pressure reading, pulse 77, temperature 97.6, respiratory rate 15, weight 131.4 pounds, heigh t 64 inches. General: The patient appears weaker than normal, not in respiratory distress. HEENT: Head atraumatic, normocephalic. Conjunctivae nonerythematous. Sclerae white. Mouth, no thr ush or edema noted. Ears/Nose, no mass, lesion, discharge noted. Neck: Supple. No JVD, lymph nodes, bruit, thyromegaly noted. Lungs: Bilateral good equal air entry. Clear to auscultation. No rhonchi. No rales. Heart: Normal heart sounds, no murmur or gallop. Abdomen: Soft, bowel sounds normal. No guarding, rigidity, tenderness, mass, hepatosplenomegaly, dis tention, or bruit noted. Extremities: No leg edema. No calf tenderness. Skin: No rash, ulcer, cellulitis. Lymphatics: No lymph node enlargement in neck, supraclavicular, infraclavicular region. Neuro: No focal neurological deficit. Chest: Unremarkable. External Genitalia: Deferred. Rectal: Deferred. Laboratory Data: Upon admission, WBC 6.4, hemoglobin 12.7, platelets 178. Sodium 133, potassium 3.4 , chloride 99, bicarb 25, BUN 28, creatinine 1.51, glucose 109. Liver function tests unremarkable. Chest x-ray shows left-sided infiltrate. Urinalysis, leukocyte esterase 75, otherwise negative. Impression: 1. Pneumonia. 2. Volume depletion. 3. Chronic kidney disease stage IIIA. 4. Hypertension. 5. Mixed hyperlipidemia. 6. Hypothyroidism. 7. Cervical spondylosis. 8. Lumbar radiculopathy. 9. Generalized anxiety disorder. 10. Diverticulosis. 11. Mitral regurgitation. Plan: Admit the patient to hospital for further evaluation and management of this problem. The fide ent is appropriate for inpatient and is expected to spend 2 midnights in hospital. We will go ahead and start her on IV fluid using normal saline per order. DVT prophylaxis will be given using SCD and fall precaution was ordered and we will consult Physical Therapy to help ambulate her. For pneumoni a, we will go ahead and start her on antibiotic. Initially, before all the test results came back, I had started her on ceftriaxone, but I will change it to Levaquin per order. The patient's blood pre ssure was low at office. We will monitor her blood pressure. Continue antihypertensive medication w ith instruction to hold blood pressure medicine if systolic blood pressure less than 120. For hyperl ipidemia, we will continue her statin therapy per order. No need for further intervention. For hypo thyroidism, we will continue her levothyroxine and no need for further intervention. For cervical sp ondylosis and lumbar radiculopathy, she is on gabapentin and we will continue that per order and will not require any further intervention at this time. Total time spent 80 minutes including evaluation and management for this hospital admission, review o f prior office visit record, review of emergency room visit record from last night, and arrangements for this hospital admission. I will see her tomorrow for followup. I did discuss with her regarding advance directives and she has not made any decision, but I have encouraged her and her son and husb and to have a discussion as a family to see what her wishes will be, but she was informed that until she reaches any different decision, she will remain full code. DOROTHY/MODL Voice ID: [id number]
[2025-02-18 03:58] VITALS: O2SAT 92
[2025-02-18] MEDS: LEVOTHYROXINE SOD 0.05 MG TABLET PO SCH (05:50)
[2025-02-18] MEDS: ENSURE HIGH PROTEIN 237 ML CAN PO SCH (10:00)
[2025-02-18] MEDS: PANTOPRAZOLE 40MG TABLET PO SCH (10:13)
--- NOTE | 2025-02-18 11:00 | PN ---
Date of Progress Note: 02/18/2025 Subjective: The patient was seen this morning for followup. No new complaints or problems reported. She feels more or less same as yesterday, no better, no worse. She is going to the bathroom with a ssistance. Denies any nausea, vomiting, abdominal pain, but since her admission, she is having some dry cough as she reports. Physical Examination: Vital Signs: Reviewed. This morning, temperature 99.1, pulse 75, respiratory rate 14, blood pressur e 129/60, oxygen saturation 91%. HEENT: Unremarkable. Lungs: Presence of rales noted in lower half of left lung. Not using accessory muscles of respirati on. Heart: Sounds normal. Abdomen: Soft. Bowel sounds normal. No guarding, rigidity, tenderness, distention. Extremities: No leg edema. Laboratory Data: Sodium 138, potassium 4, chloride 107, bicarb 25, BUN 18, creatinine 0.99, glucose 109. Impression: 1. Pneumonia. 2. Hypertension. 3. Chronic kidney disease stage 3. 4. Hyperlipidemia. 5. Hypothyroidism. Plan: We will go ahead and continue current antihypertensive medication. Continue current antibioti c, which is Levaquin. Physical Therapy to help ambulate the patient and I have advised the patient t o have her family bring her walker from home, so she can use it to ambulate [facility] and I will repeat chest x-ray tomorrow. Ensure was added for nutritional supplement, and I will see her tomorrow for followup. DOROTHY/MODL Voice ID: [id number] Report ID: [id number]
[2025-02-18] MEDS: ENOXAPARIN 30 MG/0.3 ML SQ SCH (17:19)
--- NOTE | 2025-02-19 08:46 | RAD REPORT ---
EXAMINATION: ONE VIEW CHEST XR CLINICAL INDICATION: Female, 84 years old.,pneumonia TECHNIQUE: Frontal chest projection is submitted. Examination is limited by patient positioning and t echnique. COMPARISON: 02/17/2025 FINDINGS: Progressive left basilar retrocardiac opacity with left costophrenic angle blunting and obscuration o f the left hemidiaphragmatic margin. No pneumothorax or sizable effusion. The heart is normal in size. Mediastinal contours are unremarkable. IMPRESSION: Progressive left basilar pleural-parenchymal opacification, concerning for worsening pneumonia.
--- NOTE | 2025-02-19 10:41 | PN ---
Date of Progress Note: 02/19/2025 Subjective: The patient was seen this morning for followup. She still has dry cough. Denies any ne w complaints since yesterday. She did ambulate using her walker. Physical Examination: Vital Signs: Reviewed. Last temperature this morning was 99.6, pulse 83, respiratory rate 16, blood pressure 141/67, oxygen saturation 92% on room air. HEENT: Unremarkable. Lungs: Clear to auscultation in the right lung. Left lung shows presence of rales in the basal abbie on and this is actually better today than yesterday. Not using accessory muscles of respiration. Heart: Sounds normal. Abdomen: Soft. Bowel sounds normal. No guarding, rigidity, tenderness, distention. Extremities: No leg edema. Impression: 1. Pneumonia. 2. Hypertension. 3. Hyperlipidemia. 4. Hypothyroidism. Plan: We will go ahead and continue current antibiotic which is Levaquin. Today's chest x-ray shows worsening of pneumonia and clinically her lung findings are better today than yesterday and I feel l ranulfo that radiology picture is lacking behind the clinical improvement. No need to change antibiotics at this point. We will continue current management. Repeat chest x-ray and blood work tomorrow. Ambulation was encouraged and possible discharge to go home tomorrow. DOROTHY/MODL Voice ID: [id number] Report ID: [id number]
[2025-02-19] MEDS: BENZONATATE 100 MG CAP PO PRN (16:19)
[2025-02-20] MEDS: GUAIFENESIN/DM 5 ML UCUP PO PRN (06:33)
[2025-02-20 06:41] LABS: Absolute Eosinophils 0.3 K/uL (0-0.5); Absolute Lymphocytes (CBC) 1.4 K/uL (0.7-4.9); Absolute Monocytes 0.3 K/uL (0.1-1.3); Absolute Neutrophil 2.1 K/uL (1.8-8.0); Basophils % 0.9 % (0-1.3); Eosinophils % 7.8 % (0-4.4); Hematocrit 35.1 % (36.0-45.0); Hemoglobin 11.9 g/dL (12.0-15.0); Lymphocytes % 33.2 % (15.3-44.8); MCH 30.9 pg (27.0-35.0); MCV 90.7 fL (80-100); MPV 9.5 fL (7.6-11.3); Monocytes % 7.4 % (3.3-12.3); Neutrophils % 50.7 % (41.7-73.7); Nucleated Red Blood Cells % 0.1 % (0-0); Platelets 213 thou/uL (152-406); RBC Red Blood Cell Count 3.87 M/uL (3.86-4.86); Red Cell Distribution Width 13.6 % (12.1-15.2)
[2025-02-20 07:01] LABS: Anion Gap 4.5 mEq/L (5.0-15.0); Magnesium 2.2 mg/dL (1.6-2.4); Potassium 4.5 mEq/L (3.5-5.1)
--- NOTE | 2025-02-20 07:46 | RAD REPORT ---
EXAM: Chest Single View HISTORY: 84 years Female pneumonia COMPARISON: 02/19/2025 FINDINGS: LUNGS/PLEURA: Mild airspace disease left lung base and left upper lobe not significantly changed from prior. CARDIAC/MEDIASTINUM: The cardiac silhouette is within normal limits. UPPER ABDOMEN: No significant abnormality. BONES: No acute abnormality. LINES/TUBES/OTHER: N/A IMPRESSION: Airspace disease at the left lung base and left upper lobe unchanged since 02/19/2025.
[2025-02-20 11:57] VITALS: BP 129/61; TEMP 98.2
[2025-02-20] MEDS: Levofloxacin500mg IV 500 MG/100 ML BAG IV SCH (14:33)
--- NOTE | 2025-02-20 23:02 | DS ---
Date of Discharge: 02/20/2025 Disposition: Discharged to go home. Physical Examination: HEENT: Unremarkable. Lungs: Bilateral good equal air entry with presence of rales noted in left lower lung region unchang ed from yesterday. Not using any accessory muscles of respiration. Cardiac: Heart sounds normal. Abdomen: Soft. Bowel sounds normal. No guarding, rigidity, tenderness, distention. Extremities: No leg edema. Laboratory Data: Upon admission, WBC 6.40, hemoglobin 12.7, platelets 178. Today, WBC 4.20, hemoglo bin 11.9, platelets 213. Her chemistry upon admission: Sodium 133, potassium 3.4, chloride 99, bica rb 25, BUN 28, creatinine 1.51, glucose 109. Liver function tests unremarkable. Today, sodium 141, potassium 4.5, chloride 110, bicarb 31, BUN 19, creatinine 1.05. Day before yesterday, creatinine wa s 0.99. Today, glucose 104, magnesium 2.2. Discharge Medications And Instructions: Continue prior home medication except following changes: 1. Stop doxazosin. 2. Check your blood pressure before taking nisoldipine in morning and evening, and if her systolic bl ood pressure, which is top number is less than 120, then do not take your nisoldipine. 3. Start levofloxacin 500 mg take 1 tablet by mouth daily with food for 1 week. 4. Follow up at my office on 03/01/2025. 5. Patient to get a chest x-ray done at hospital on 02/28/2025 and corn picker order from my office. Final Diagnoses: 1. Pneumonia. 2. Volume depletion. 3. Acute kidney injury. 4. Chronic kidney disease stage 3A. 5. Anemia, unspecified. 6. Hypokalemia. 7. Hypertension. 8. Mixed hyperlipidemia. 9. Hypothyroidism. 10. Generalized anxiety disorder. 11. Cervical spondylosis. 12. Lumbar radiculopathy. 13. Diverticulosis. 14. Mitral regurgitation. Hospital Course: This is an 84-year-old female patient who was admitted to the hospital with fever, poor appetite, feeling weak. Please see dictated H and P for more information. After patient was ev aluated at office, decision was made to admit her to the hospital and initial chest x-ray showed poss ibility of left basal infiltrate. The patient was started on Levaquin. In the beginning, she contin ued to have low-grade fever. Maximum temperature during this hospitalization was 101.2 on the day of admission, after that her temperature continued to come down. Last temperature spike she had was te mperature of 99.6 degrees Fahrenheit on 02/19/2025. After that, the patient has not had any fever. She started to have dry cough after she was admitted to the hospital and still continues to be dry co ugh. Yesterday, we added some Robitussin DM for cough that actually has helped her very well. In e beginning, she had significant generalized weakness, which has improved. Now, she is ambulating we ll independently with the walker. Overall, she feels stronger than before. Her appetite has returne d and she is feeling much better compared to time of admission. The patient does not have walker at home. She is using her 's walker while in the hospital and she has requested a prescription f or walker and I have requested social service to assist the patient with that. The patient's last do se of Levaquin will be given this morning and I have instructed her that her Levaquin that she will t mar it at home should be starting tomorrow and I will send prescription to her pharmacy. I have gone over discharge medication instruction personally and explained it to patient regarding change in the medication and importance of checking blood pressure before taking dose of nisoldipine because peggy ding on her blood pressure reading, she will be making decision whether to take dose at that particul ar time or not and she verbalized this understanding. Total time spent 40 minutes. DOROTHY/BRICE Voice ID: [id number] Report ID: [id number]
== END 2025-02-20 16:13 | disposition home or self-care (01) | DRG 194 ==
LOC: 2ND 13:14
PROVIDERS: ADMIT Internal Medicine; ATTEND Internal Medicine
DX: J18.9 Pneumonia, unspecified organism (principal); N17.9 Acute kidney failure, unspecified; E78.2 Mixed hyperlipidemia; E03.9 Hypothyroidism, unspecified; I12.9 Hypertensive chronic kidney disease with stage 1 through stage 4 chronic kidney disease, or unspecified chronic kidney disease; N18.31 Chronic kidney disease, stage 3a; K21.9 Gastro-esophageal reflux disease without esophagitis; E86.9 Volume depletion, unspecified; M47.26 Other spondylosis with radiculopathy, lumbar region; M47.22 Other spondylosis with radiculopathy, cervical region; F41.1 Generalized anxiety disorder; I34.0 Nonrheumatic mitral (valve) insufficiency; K57.90 Diverticulosis of intestine, part unspecified, without perforation or abscess without bleeding; Z88.0 Allergy status to penicillin; Z79.890 Hormone replacement therapy; Z79.899 Other long term (current) drug therapy
CPT/HCPCS: 36415; 71045; 80048; 80053; 81001; 83735; 84100; 85025; 87040; 87086; 87088; 97116; 97161; J0696; J1650; J7030